=== PATIENT | male | born 1950 | race Caucasian/White ===

== ENCOUNTER 2017-08-12 08:17 | Day surgery (SDC) | payer MEDICARE ==
[2017-08-12] MEDS ORDERED: DIPRIVAN 200 MG/20 ML IV ONE (08:18)
[2017-08-12] MEDS ORDERED: Ketamine HCl 50 MG/ML IV ONE (08:18)
--- NOTE | 2017-08-12 08:45 | HP ---
DATE OF SURGERY: 08/12/2017 HISTORY OF PRESENT ILLNESS: The patient is a 67 year-old with some constant burning over the past couple of months in his stomach. Wakes him up at night. Three weeks he started some omeprazole that helped a little bit but still having some symptoms. Question whether had some gastritis, peptic ulcer disease, esophagitis or other etiology. He is in need of upper endoscopy for evaluation. PAST MEDICAL HISTORY: Hypertension, diabetes mellitus type 2. PAST SURGICAL HISTORY: Cholecystectomy in the past. History of lap band in the past. MEDICATIONS: Omeprazole, Plavix, Metformin, metoprolol, Tricor, eplerenone, Celexa, Norvasc, aspirin, Pravacol, Toprol, losartan hydrochlorothiazide, [place], Klor-Con. ALLERGIES: OXYCONTIN FAMILY HISTORY: Negative in regards to this problem. SOCIAL HISTORY: No smoking or alcohol abuse. REVIEW OF SYSTEMS: Twelve systems reviewed per admission assessment. No chest pain or palpitations other systems negative or noncontributory as above and per preadmission questionnaire. PHYSICAL EXAMINATION: GENERAL: No acute distress. HEENT: Sclerae nonicteric. NECK: No JVD. CHEST: Equal excursion, nonlabored breathing. CVS: Regular rate and rhythm. ABDOMEN: Soft. No peritoneal signs. EXTREMITIES: No significant edema. NEURO: Alert, moving extremities symmetrically. No gross motor deficits noted. IMPRESSION: Epigastric burning with question of gastritis, peptic ulcer disease, esophagitis. I feel he is in need of upper endoscopy possible biopsy as an outpatient. Risks and benefits explained in detail including but not limited to bleeding or infection, small risk of bowel injury or perforation possibly requiring open procedure, small risk of missed or nondiagnosis or incomplete exam possibly requiring barium swallow, other studies or procedures. He understands and agrees to the planned procedure and will proceed with EGD possible biopsy as an outpatient.
[2017-08-12] MEDS ORDERED: Lactated Ringers 1,000 ML IV SCH (09:00)
[2017-08-12 11:42] VITALS: BP 162/78; PULSE 54; O2SAT 96
--- NOTE | 2017-08-12 12:51 | OP ---
SURGERY DATE/TIME: 08/12/2017 1021 PREOPERATIVE DIAGNOSIS: Increased epigastric burning and reflux. POSTOPERATIVE DIAGNOSES: 1) Erosive distal esophagitis. 2) Mild erosive gastritis. PROCEDURES: 1) EGD with cold biopsy of the antrum to evaluate for Helicobacter pylori. 2) Cold biopsy distal esophagus to evaluate esophagitis. SURGEON: Dr. Dashawn Freeman. ANESTHESIA: MAC. ESTIMATED BLOOD LOSS: Minimal. INDICATIONS: As noted above. Risks and benefits explained in detail and not limited to and consent obtained. DESCRIPTION OF PROCEDURE AND FINDINGS: The patient is taken to the operating room. MAC anesthesia was introduced. After official time out and no disagreement with planned procedure, bite block positioned. Video gastroscope passed down through the esophagus down to the junction of the second and third portion of the duodenum. Duodenum grossly unremarkable. No signs of any ulcers or gross inflammation. The scope was pulled back to the stomach. He had some mild erosive gastritis. Cold biopsy taken to evaluate for Helicobacter pylori. On retroflex, there was no large hiatal hernia. Whether he had a very slight weakness at the hiatus there was no evidence of any large hiatal hernia on endoscopic view. The scope is straightened. Gastroesophageal junction noted to be about 38 cm. He did have 2.5 to 3 cm segment of erosive esophagitis. Multiple cold biopsies were taken around this area. The patient began coughing like crazy at this point. He appeared to have adequate hemostasis at the biopsy site in the more proximal esophagus. No signs of any obvious masses. The scope is withdrawn. The patient tolerated the procedure well. Findings discussed with the family out in the waiting area. It was felt she could continue proton pump inhibitors and work on losing weight, avoiding before eating before he goes to bed. I will see him back in the office next week to go over the results.
== END 2017-08-12 11:40 | disposition home or self-care (01) ==
LOC: SDC 08:17
PROVIDERS: ATTEND Surgery
PROC: 0DB78ZX Excision of Stomach, Pylorus, Via Natural or Artificial Opening Endoscopic, Diagnostic (ICD-10-PCS; principal; 2017-08-12)
PROC: 0DB38ZX Excision of Lower Esophagus, Via Natural or Artificial Opening Endoscopic, Diagnostic (ICD-10-PCS; 2017-08-12)
DX: K22.10 Ulcer of esophagus without bleeding (principal); K29.70 Gastritis, unspecified, without bleeding
CPT/HCPCS: 00740; 36415; 88305; J2704

== ENCOUNTER 2019-09-27 11:09 | Emergency (ER) | payer MEDICARE ==
[2019-09-27] MEDS ORDERED: XYLOCAINE 1% HCL 20 ML MDV ONE (11:22)
[2019-09-27] MEDS ORDERED: BACIGUENT PACKET TP ONE (11:30)
[2019-09-27] MEDS ORDERED: BACIGUENT PACKET ONE (11:31)
--- NOTE | 2019-09-27 11:39 | ERPHSYRPT ---
- History of Present Illness Time Seen by Provider: 09/27/19 11:20 Source: patient Exam Limitations: no limitations Timing/Duration: today, other (Cut right thumb while cooking) Quality: painful Severity: mild Location: hands (Right thumb) Allergies/Adverse Reactions: oxycodone HCl [From OxyContin] Allergy (Mild, Verified 08/12/17 08:33) Difficulty Breathing Home Medications: Amlodipine Besylate 5 mg [Norvasc 5 mg] 5 mg PO DAILY 02/24/15 [History] Aspirin 81 mg PO DAILY 02/24/15 [History] Citalopram Hydrobromide 20 mg* [ceLEXa 20 MG] 40 mg PO DAILY 02/24/15 [ History] Eplerenone [Inspra] 100 mg PO BID 02/24/15 [History] Hydralazine HCl 50 mg PO TID 02/24/15 [History] Losartan/Hydrochlorothiazide [Hyzaar 100-12.5 Tablet] 1 tab PO DAILY 02/24/15 [ History] Metformin HCl 500 mg [Glucophage 500 MG] 500 mg PO DAILY 02/24/15 [History ] Metoprolol Succinate 50 mg [Toprol Xl 50 MG] 75 mg PO DAILY 02/24/15 [ History] Pravastatin Sodium [Pravachol] 40 mg PO DAILY 02/24/15 [History] Fenofibrate,Micronized 145 mg* [Tricor 145 MG] 145 mg PO DAILY 08/07/17 [ History] Insulin Lispro [Humalog] 14 unit SQ DAILY 08/07/17 [History] Omeprazole 40 mg PO DAILY 08/07/17 [History] Potassium Chloride 10 Meq Tab* [Klor Con 10 MEQ] 10 meq PO DAILY 08/07/17 [ History] Hx Tetanus, Diphtheria Vaccination/Date Given: No Hx Influenza Vaccination/Date Given: Yes Hx Pneumococcal Vaccination/Date Given: No - Review of Systems Constitutional: No Fever, No Chills Eyes: No Symptoms Ears, Nose, & Throat: No Symptoms Respiratory: No Cough, No Dyspnea Cardiac: No Chest Pain, No Edema, No Syncope Abdominal/Gastrointestinal: No Abdominal Pain, No Nausea, No Vomiting, No Diarrhea Genitourinary Symptoms: No Dysuria Musculoskeletal: No Back Pain, No Neck Pain Skin: No Rash Neurological: No Dizziness, No Focal Weakness, No Sensory Changes Psychological: No Symptoms Endocrine: No Symptoms All Other Systems: Reviewed and Negative - Past Medical History Pertinent Past Medical History: No Neurological History: No Pertinent History ENT History: No Pertinent History Cardiac History: No Pertinent History, Other Respiratory History: No Pertinent History Endocrine Medical History: Diabetes Type II Musculoskeletal History: Osteoarthritis GI Medical History: No Pertinent History History: No Pertinent History Psycho-Social History: No Pertinent History Male Reproductive Disorders: No Pertinent History Other Medical History: B TKA, Back pain due to degeneration, 2 stints in his heart, - Past Surgical History Past Surgical History: Yes Neuro Surgical History: No Pertinent History Cardiac: Cardiac Catheterization, Cardiac Stent Respiratory: No Pertinent History Gastrointestinal: Cholecystectomy Genitourinary: No Pertinent History Musculoskeletal: Orthopedic Surgery Male Surgical History: No Pertinent History Other Surgical History: LAP BAND SURGERY. CAROLYN KNEES REPLACED. RHINOPLASTY - Social History Smoking Status: Never smoker Exposure to second hand smoke: No Drug Use: none Patient Lives Alone: No - Physical Exam General Appearance: no apparent distress, alert Eye Exam: PERRL/EOMI, eyes nml inspection Ears, Nose, Throat Exam: normal ENT inspection, pharynx normal, moist mucous membranes Neck Exam: normal inspection, non-tender, supple, full range of motion Respiratory Exam: normal breath sounds, lungs clear, No respiratory distress Cardiovascular Exam: regular rate/rhythm, normal heart sounds Gastrointestinal/Abdomen Exam: soft, mass, No tenderness Back Exam: normal inspection, normal range of motion, No CVA tenderness, No vertebral tenderness Extremity Exam: normal inspection, normal range of motion, lacerations (1 cm laceration distal pad of right thumb.) Neurologic Exam: alert, oriented x 3, cooperative, normal mood/affect, sensation nml, No motor deficits Skin Exam: normal color, warm, dry Procedures - Laceration/Wound Repair Right Upper Distal Finger Wound Location: Right, hand (Distal pad right thumb) Wound's Depth, Shape: superficial, linear Wound Explored: no foreign body noted Irrigated: Yes Hibiclens Prep: Yes Anesthesia: 1% Lidocaine Volume Anesthetic (ccs): 1 Wound Debrided: minimal Wound Repaired With: sutures Suture Size/Type: 5-0, nylon Number of Sutures: 1 Layer Closure?: No Sterile Dressing Applied?: Yes Splint Applied?: No Sling Applied?: No Ordered Tests: Medication Summary Generic Name Dose Route Start Last Admin Trade Name Jaqueline PRN Reason Stop Dose Admin Lidocaine HCl 5 ml 09/27/19 12:00 Xylocaine-Mpf 2% 5 Ml Vial IJ 09/27/19 12:01 ONCE ONE Discontinued Medications Generic Name Dose Route Start Last Admin Trade Name Jaquleine PRN Reason Stop Dose Admin Bacitracin Zinc 0.9 gm 09/27/19 11:30 Baciguent Packet TP 09/27/19 11:31 STAT ONE Bacitracin Zinc Confirm 09/27/19 11:31 Baciguent Packet Administered 09/27/19 11:32 Dose 1 gm .ROUTE .STK-MED ONE Lidocaine HCl Confirm 09/27/19 11:22 Xylocaine 1% Hcl 20 Ml Mdv Administered 09/27/19 11:23 Dose 5 ml .ROUTE .STK-MED ONE - Progress Progress: improved - Departure Departure Disposition: Home Clinical Impression: Laceration of right thumb Condition: Stable Critical Care Time: No Referrals: GEOVANNI CORCORAN [Primary Care Provider] - Instructions: Laceration Repair With Stitches (DC)
[2019-09-27 11:44] VITALS: BP 173/90; PULSE 60; O2SAT 95
[2019-09-27] MEDS ORDERED: Xylocaine-Mpf 2% 5 Ml Vial IJ ONE (12:00)
[2019-09-27] MEDS ORDERED: XYLOCAINE 1% HCL 20 ML MDV IJ ONE (12:07)
== END 2019-09-27 12:09 | disposition home or self-care (01) ==
LOC: ED 11:09
DX: S61.011A Laceration without foreign body of right thumb without damage to nail, initial encounter (principal); M79.644 Pain in right finger(s); W45.8XXA Other foreign body or object entering through skin, initial encounter; Y93.G3 Activity, cooking and baking; E11.9 Type 2 diabetes mellitus without complications; Z79.4 Long term (current) use of insulin; Z79.899 Other long term (current) drug therapy
CPT/HCPCS: 12001; 99284; A9270-GY

== ENCOUNTER 2019-10-01 13:43 | Emergency (ER) | payer MEDICARE ==
[2019-10-01 13:55] VITALS: BP 168/94; PULSE 81; O2SAT 93
--- NOTE | 2019-10-01 13:59 | ERPHSYRPT ---
- History of Present Illness Time Seen by Provider: 10/01/19 13:52 Source: patient Exam Limitations: no limitations Patient Subjective Stated Complaint: Wound check- suture removal to right hand, thumb Triage Nursing Assessment: Patient ambulated back to ED and transferred self to bed. Patient A+O X3. Patient's skin pink, warm and dry. Patient here to have suture removed to right hand, thumb. Patient had stitch placed on Saturday in this ER for laceration to right hand, thumb. Patient denies pain or discomfort. Physician History: 69 yo is here for suture removal right thumb with no swelling/redness or discharge around. minimal pain on palpation. Allergies/Adverse Reactions: oxycodone HCl [From OxyContin] Allergy (Mild, Verified 10/01/19 13:48) Difficulty Breathing Home Medications: Amlodipine Besylate 5 mg [Norvasc 5 mg] 5 mg PO DAILY 02/24/15 [History] Aspirin 81 mg PO DAILY 02/24/15 [History] Citalopram Hydrobromide 20 mg* [ceLEXa 20 MG] 40 mg PO DAILY 02/24/15 [ History] Eplerenone [Inspra] 100 mg PO BID 02/24/15 [History] Hydralazine HCl 50 mg PO TID 02/24/15 [History] Losartan/Hydrochlorothiazide [Hyzaar 100-12.5 Tablet] 1 tab PO DAILY 02/24/15 [ History] Metformin HCl 500 mg [Glucophage 500 MG] 500 mg PO DAILY 02/24/15 [History ] Metoprolol Succinate 50 mg [Toprol Xl 50 MG] 75 mg PO DAILY 02/24/15 [ History] Pravastatin Sodium [Pravachol] 40 mg PO DAILY 02/24/15 [History] Fenofibrate,Micronized 145 mg* [Tricor 145 MG] 145 mg PO DAILY 08/07/17 [ History] Insulin Lispro [Humalog] 14 unit SQ DAILY 08/07/17 [History] Potassium Chloride 10 Meq Tab* [Klor Con 10 MEQ] 10 meq PO DAILY 08/07/17 [ History] Hx Tetanus, Diphtheria Vaccination/Date Given: Yes Hx Influenza Vaccination/Date Given: Yes Hx Pneumococcal Vaccination/Date Given: No Immunizations Up to Date: Yes - Review of Systems Constitutional: No Symptoms Respiratory: No Symptoms Cardiac: No Symptoms Abdominal/Gastrointestinal: No Symptoms Musculoskeletal: No Symptoms Skin: Skin Lesions Neurological: No Symptoms - Past Medical History Pertinent Past Medical History: No Neurological History: No Pertinent History ENT History: No Pertinent History Cardiac History: No Pertinent History, Other Respiratory History: No Pertinent History Endocrine Medical History: Diabetes Type II Musculoskeletal History: Osteoarthritis GI Medical History: No Pertinent History History: No Pertinent History Psycho-Social History: No Pertinent History Male Reproductive Disorders: No Pertinent History Other Medical History: B TKA, Back pain due to degeneration, 2 stints in his heart, - Past Surgical History Past Surgical History: Yes Neuro Surgical History: No Pertinent History Cardiac: Cardiac Catheterization, Cardiac Stent Respiratory: No Pertinent History Gastrointestinal: Cholecystectomy Genitourinary: No Pertinent History Musculoskeletal: Orthopedic Surgery Male Surgical History: No Pertinent History Other Surgical History: LAP BAND SURGERY. CAROLYN KNEES REPLACED. RHINOPLASTY - Social History Smoking Status: Former smoker Exposure to second hand smoke: No Drug Use: none Patient Lives Alone: No - Nursing Vital Signs Nursing Vital Signs: Initial Vital Signs Temperature 97.4 F 10/01/19 13:49 Pulse Rate 81 10/01/19 13:49 Blood Pressure 168/94 10/01/19 13:49 O2 Sat by Pulse Oximetry 93 L 10/01/19 13:49 Pain Scale Pain Intensity 0 - Physical Exam General Appearance: no apparent distress Neck Exam: normal inspection Cardiovascular/Respiratory Exam: normal breath sounds, regular rate/rhythm Back Exam: normal inspection, normal range of motion Hand Exam: non-tender, normal ROM, No limited ROM Neuro/Tendon Exam: normal sensation Mental Status Exam: alert, oriented x 3 Skin Exam: other (suture well applied right distal thumb. no erythema/redness/ tenderness) SpO2: 93 - Course Nursing assessment & vital signs reviewed: Yes - Progress Progress: improved Progress Note: 10/01/19 14:14 sutures are removed by RN with no active bleed afterward. edges well healing. Counseled pt/family regarding: diagnosis, need for follow-up - Departure Departure Disposition: Home Clinical Impression: Encounter for removal of sutures Condition: Stable Critical Care Time: No Referrals: GEOVANNI CORCORAN [Primary Care Provider] - Follow Up with PCP/3 days Additional Instructions: keep it clean , follow up with PCP for re evaluation. return for any worsening swelling/redness/pain
== END 2019-10-01 14:05 | disposition home or self-care (01) ==
LOC: ED 13:43
DX: Z48.02 Encounter for removal of sutures (principal)
CPT/HCPCS: 99283

== ENCOUNTER 2020-09-30 17:36 | Emergency (ER) | payer MEDICARE ==
[2020-09-30 17:47] VITALS: BP 193/99; PULSE 71; O2SAT 96
[2020-09-30] MEDS ORDERED: ARZOL Silver Nitrate Applicator TP ONE ×2 (17:52→17:59)
--- NOTE | 2020-09-30 18:06 | ERPHSYRPT ---
- History of Present Illness Time Seen by Provider: 09/30/20 17:50 Source: patient Exam Limitations: no limitations Patient Subjective Stated Complaint: PT states "I was cutting potatos with a slicer and cut the tip of my finger." Triage Nursing Assessment: Pt presented alert and oriented X 3, skin wpd pt ambualtes with an upright steady gait, able to speak in clear full sentencse pt right index finger has tip of skin cut off. Physician History: 70 years old male presented in the ER with chief complaint of superficial right index fingertip skin loss when he was peeling off potatoes prior to arrival. Patient reports bleeding which did not stop with pressure. Reports taking Plavix. Minimal dull aching pain. Timing/Duration: today, sudden Severity: mild Associated Symptoms: denies symptoms Allergies/Adverse Reactions: oxycodone HCl [From OxyContin] Allergy (Mild, Verified 08/16/20 17:18) Difficulty Breathing Home Medications: Amlodipine Besylate 5 mg [Norvasc 5 mg] 5 mg PO DAILY 02/24/15 [History] Aspirin 81 mg PO DAILY 02/24/15 [History] Citalopram Hydrobromide 20 mg* [ceLEXa 20 MG] 40 mg PO DAILY 02/24/15 [History] Hydralazine HCl 100 mg PO BID 02/24/15 [History] Losartan/Hydrochlorothiazide [Hyzaar 100-12.5 Tablet] 1 tab PO DAILY 02/24/15 [History] Metformin HCl 500 mg [Glucophage 500 MG] 500 mg PO BID 02/24/15 [History] Metoprolol Succinate 50 mg [Toprol Xl 50 MG] 50 mg PO BID 02/24/15 [History] Potassium Chloride 10 Meq Tab* [Klor Con 10 MEQ] 20 meq PO DAILY 08/07/17 [History] Hx Tetanus, Diphtheria Vaccination/Date Given: Yes Hx Influenza Vaccination/Date Given: No Hx Pneumococcal Vaccination/Date Given: No Immunizations Up to Date: Yes Travel Risk - International Travel Have you traveled outside of the country in past 3 weeks: No - Coronavirus Screening Are you exhibiting any of the following symptoms?: No Close contact with a COVID-19 positive Pt in past 14-21 Days: No - Review of Systems Constitutional: No Symptoms Eyes: No Symptoms Ears, Nose, & Throat: No Symptoms Respiratory: No Symptoms Cardiac: No Symptoms Abdominal/Gastrointestinal: No Symptoms Musculoskeletal: Injury Skin: Skin Lesions Neurological: No Symptoms - Past Medical History Pertinent Past Medical History: Yes Neurological History: No Pertinent History ENT History: No Pertinent History Cardiac History: No Pertinent History, Other Respiratory History: No Pertinent History Endocrine Medical History: Diabetes Type II Musculoskeletal History: Osteoarthritis GI Medical History: No Pertinent History History: No Pertinent History Psycho-Social History: No Pertinent History Male Reproductive Disorders: No Pertinent History Other Medical History: B TKA, Back pain due to degeneration, 2 stints in his heart, - Past Surgical History Past Surgical History: Yes Neuro Surgical History: No Pertinent History Cardiac: Cardiac Catheterization, Cardiac Stent Respiratory: No Pertinent History Gastrointestinal: Cholecystectomy Genitourinary: No Pertinent History Musculoskeletal: Orthopedic Surgery Male Surgical History: No Pertinent History Other Surgical History: LAP BAND SURGERY. CAROLYN KNEES REPLACED. RHINOPLASTY - Social History Smoking Status: Never smoker Exposure to second hand smoke: No Drug Use: none Patient Lives Alone: No - Nursing Vital Signs Nursing Vital Signs: Initial Vital Signs Temperature 98.1 F 09/30/20 17:43 Pulse Rate 71 09/30/20 17:43 Respiratory Rate 20 09/30/20 17:43 Blood Pressure 193/99 09/30/20 17:43 O2 Sat by Pulse Oximetry 96 09/30/20 17:43 Pain Scale Pain Intensity 2 - Physical Exam General Appearance: no apparent distress Ears, Nose, Throat Exam: pharynx normal Neck Exam: normal inspection, full range of motion Respiratory Exam: normal breath sounds, lungs clear Cardiovascular Exam: regular rate/rhythm, normal heart sounds Extremity Exam: other (Right index finger PIP 0.2 cm superficial skin junk is loss with minimal oozing. No injury to the nail. Intact range of motion) Skin Exam: normal color SpO2 Interpretation: normal SpO2: 96 O2 Delivery: Room Air Procedures - Laceration/Wound Repair Right Finger Wound Location: Right Wound Length (cm): 0.25 Wound's Depth, Shape: superficial Wound Explored: clean Irrigated: Yes Hibiclens Prep: Yes Progress: 09/30/20 18:04 Silver nitrate applied and hemostasis secured. Superficial skin is gone. Ordered Tests: Medication Summary Discontinued Medications Generic Name Dose Route Start Last Admin Trade Name Freq PRN Reason Stop Dose Admin Silver Nitrate Confirm 09/30/20 17:52 Arzol Silver Nitrate Applicator Administered 09/30/20 17:53 Dose 2 pkt TP .STK-MED ONE Silver Nitrate 1 pkt 09/30/20 17:59 09/30/20 18:00 Arzol Silver Nitrate Applicator TP 09/30/20 18:00 1 pkt STAT ONE Administration - Progress Progress: improved Progress Note: 09/30/20 18:04 Hemostasis is secure with silver nitrate sticks. Bandage applied. Up-to-date with tetanus Counseled pt/family regarding: diagnosis, need for follow-up - Departure Departure Disposition: Home Clinical Impression: Finger laceration Qualifiers: Encounter type: initial encounter Finger: index finger Damage to nail status: without damage Foreign body presence: without foreign body Laterality: right Qualified Code(s): S61.210A - Laceration without foreign body of right index finger without damage to nail, initial encounter Condition: Stable Critical Care Time: No Referrals: GEOVANNI CORCORAN [Primary Care Provider] - Follow Up with PCP/3 days Instructions: Wound Care (DC) Additional Instructions: Keep it clean. Avoid excessive movements at right index finger. Apply firm pressure if have bleeding again. Follow-up with PCP for swelling redness discharge/worsening pain.
== END 2020-09-30 18:15 | disposition home or self-care (01) ==
LOC: ED 17:36
DX: S61.210A Laceration without foreign body of right index finger without damage to nail, initial encounter (principal); Z79.01 Long term (current) use of anticoagulants
CPT/HCPCS: 99283; A9270-GY